=== PATIENT | female | born 1995 | race Caucasian/White ===

== ENCOUNTER 2016-06-14 19:33 | Emergency (ER) | payer SELFPAY ==
[2016-06-14] MEDS ORDERED: IBUPROFEN 800 MG TABLET PO ONE (20:27)
--- NOTE | 2016-06-14 20:27 | ER Document Report ---
ED Medical Screen (RME) - General Stated Complaint: FALL/BACK PAIN Notes: Patient is a 20-year-old female presents emergency Department with 2 days or back pain. Patient states that she is getting out of a car and she slipped and landed on her bottom. She is able to bear weight and ambulate. Denies any urinary system, saddle anesthesia. I have greeted and performed a rapid initial assessment of this patient. A comprehensive ED assessment and evaluation of the patient, analysis of test results and completion of the medical decision making process will be conducted by additional ED providers. TRAVEL OUTSIDE OF THE [place] IN LAST 30 DAYS: No - Related Data Allergies/Adverse Reactions: No Known Allergies Allergy (Verified 11/14/15 12:15) Past Medical History Neurological Medical History: Reports: Hx Migraine Psychiatric Medical History: Reports: Hx Anxiety - Immunizations Hx Diphtheria, Pertussis, Tetanus Vaccination: Yes Physical Exam - Vital signs Vitals: Temp Pulse Resp BP Pulse Ox 97.3 F 67 16 102/51 L 100 06/14/16 20:17 06/14/16 20:17 06/14/16 20:17 06/14/16 20:17 06/14/16 20:17 Course - Vital Signs Vital signs: Temp Pulse Resp BP Pulse Ox 97.3 F 67 16 102/51 L 100 06/14/16 20:17 06/14/16 20:17 06/14/16 20:17 06/14/16 20:17 06/14/16 20:17
[2016-06-14] MEDS ORDERED: HYDROCODONE/ACETAMINOPHEN 5-325 MG 6 TAB/DSPK PO PRN (22:36)
--- NOTE | 2016-06-14 22:39 | ER Document Report ---
HPI - HPI Pain Level: 4 Context: Patient is a 20-year-old female that comes emergency department for chief complaint of 2 days of pain in her tailbone area. Patient states she was getting out of a car and she slipped and fell backwards and landed on the ground directly on her tailbone. She states that she cannot get comfortable but she is able to bear weight and walk without difficulty. She denies any bowel incontinence, urinary retention, focal numbness or weakness. She does state she has pain in her right hamstring area as well. LMP 05/18/2016. - REPRODUCTIVE LMP: 05/18/16 Reproductive: DENIES: : - DERM Skin Color: Normal Past Medical History - General Information source: Patient - Social History Smoking Status: Current Every Day Smoker Chew tobacco use (# tins/day): No Frequency of alcohol use: None Drug Abuse: None Lives with: Family Family History: Reviewed & Not Pertinent Patient has suicidal ideation: No Patient has homicidal ideation: No Neurological Medical History: Reports: Hx Migraine Renal/ Medical History: Denies: Hx Peritoneal Dialysis Psychiatric Medical History: Reports: Hx Anxiety Surgical Hx: Negative - Immunizations Hx Diphtheria, Pertussis, Tetanus Vaccination: Yes Vertical Provider Document - CONSTITUTIONAL General Appearance: WD/WN, No Apparent Distress, Obese - INFECTION CONTROL TRAVEL OUTSIDE OF THE [place] IN LAST 30 DAYS: No - HEENT HEENT: Atraumatic, Normal ENT Exam, Normocephalic - NECK Neck: Normal Inspection - RESPIRATORY Respiratory: Breath Sounds Normal, No Respiratory Distress O2 Sat by Pulse Oximetry: 100 - CARDIOVASCULAR Cardiovascular: Regular Rate, Regular Rhythm - GI/ABDOMEN Gastrointestinal: Abdomen Soft, Abdomen Non-Tender - MUSCULOSKELETAL/EXTREMETIES Musculoskeletal/Extremeties: MAEW, FROM, Non-Tender - NEURO Level of Consciousness: Awake, Alert, Appropriate - DERM Integumentary: Warm, Dry, No Rash Course - Re-evaluation Re-evalutation: Patient actually is tender specifically over the sacrum/coccyx on examination, however there is no bruising or significant swelling to the area, x-rays do not show any fracture, patient ambulates without difficulty, no saddle anesthesia, normal distal neurovascular exam, normal back exam otherwise. Treating with anti-inflammatories, muscle relaxers, discussed results, treatment recommendations, follow-up, return precautions, patient states understanding and agreement. - Vital Signs Vital signs: Temp Pulse Resp BP Pulse Ox 97.3 F 67 16 102/51 L 100 06/14/16 20:17 06/14/16 20:17 06/14/16 20:17 06/14/16 20:17 06/14/16 20:17 Discharge - Discharge Clinical Impression: Sacral back pain Right hamstring muscle strain Qualifiers: Encounter type: initial encounter Qualified Code(s): S76.311A - Strain of muscle, fascia and tendon of the posterior muscle group at thigh level, right thigh, initial encounter Condition: Stable Disposition: HOME, SELF-CARE Additional Instructions: X-rays show no fracture, examination and symptoms are consistent with contusion and soft tissue injury. Apply heat to your hamstring, take the naproxen and Robaxin as directed, rest. Follow-up with primary care. Return to the emergency department for any concerning or worsening symptoms including numbness, inability to urinate, fever, or any other concerning symptoms. Prescriptions: Methocarbamol [Robaxin 750 mg Tablet] 750 mg PO Q6 #20 tablet Naproxen 500 mg PO BID #14 tablet Forms: Return to Work
[2016-06-14 23:00] VITALS: BP 117/63
== END 2016-06-14 22:59 | disposition home or self-care (01) ==
LOC: ER 19:33
DX: S76.311A Strain of muscle, fascia and tendon of the posterior muscle group at thigh level, right thigh, initial encounter (principal); W17.89XA Other fall from one level to another, initial encounter; Y93.89 Activity, other specified; M53.3 Sacrococcygeal disorders, not elsewhere classified; F17.200 Nicotine dependence, unspecified, uncomplicated
CPT/HCPCS: 72220; 99283

== ENCOUNTER 2016-07-06 22:41 | Emergency (ER) | payer SELFPAY ==
[2016-07-07] MEDS ORDERED: CLONAZEPAM 1 MG TABLET PO ONE (01:03)
--- NOTE | 2016-07-07 01:08 | ER Document Report ---
ED General - General Chief Complaint: Anxiety Stated Complaint: TROUBLE BREATHING Notes: Patient is a 21-year-old female presents with complaint of possible panic attack. Patient says she has a history of anxiety and panic attacks in the past. 2 months ago she stopped shoulder prescription for Prozac and Klonopin because she cannot afford them. She says she still sees her doctor and is still prescribe these medications but has been unable to get them filled. She said tonight she woke up and had rapid breathing and felt like her heart was beating fast. She didn't start full numbness and her extremities and she developed carpopedal spasms of both hands. She says since being in the ER the symptoms have resolved and she feels improved. She says she's had the exact same symptoms in the past however this time they were more severe because she has been without her medications. She has no other complaints at this time. TRAVEL OUTSIDE OF THE [place] IN LAST 30 DAYS: No - Related Data Allergies/Adverse Reactions: No Known Allergies Allergy (Verified 07/06/16 23:14) Past Medical History - Social History Smoking Status: Former Smoker Chew tobacco use (# tins/day): No Frequency of alcohol use: None Drug Abuse: Marijuana Family History: Reviewed & Not Pertinent Neurological Medical History: Reports: Hx Migraine Renal/ Medical History: Denies: Hx Peritoneal Dialysis Psychiatric Medical History: Reports: Hx Anxiety - Immunizations Hx Diphtheria, Pertussis, Tetanus Vaccination: Yes Review of Systems - Review of Systems Notes: My Normal Review Basic REVIEW OF SYSTEMS: CONSTITUTIONAL : Denies fever, chills, or sweats. Denies recent illness. CARDIOVASCULAR: Some chest heaviness RESPIRATORY: Rapid breathing MUSCULOSKELETAL: Spasm into the hands SKIN: Denies rash or skin lesions.. NEUROLOGICAL: Denies altered mental status or loss of consciousness. Denies headache. Denies weakness or paralysis or loss of use of either side. Denies problems with gait or speech. Extremity numbness PSYCHIATRIC: Anxiety ALL OTHER SYSTEMS REVIEWED AND NEGATIVE. Physical Exam - Vital signs Vitals: Pulse Resp BP Pulse Ox 116 H 20 120/86 H 100 07/06/16 22:45 07/06/16 22:45 07/06/16 22:45 07/06/16 22:45 - Notes Notes: General Appearance: Well nourished, alert, cooperative, no acute distress, no obvious discomfort. Well-appearing. Vitals: reviewed, See vital signs table. Head: no swelling or tenderness to the head Eyes: PERRL, EOMI, Conjuctiva clear Mouth: No decreasd moisture Neck: Supple, no neck tenderness, No thyromegaly Lungs: No wheezing, No rales, No rhonci, No accessory muscle use, good air exchange bilaterally. Heart: Normal rate, Regular rythm, No murmur, no rub Extremities: strength 5/5 in all extremities, good pulses in all extremities, no swelling or tenderness in the extremities, no edema. Skin: warm, dry, appropriate color, no rash Neuro: speech clear, oriented x 3, normal affect, responds appropriately to questions. Nerves II through XII are intact. Patient moves all extremities without difficulty. Distal sensation intact. Course - Vital Signs Vital signs: Temp Pulse Resp BP Pulse Ox 116 H 20 120/86 H 100 07/06/16 22:45 07/06/16 22:45 07/06/16 22:45 07/06/16 22:45 - Transfer of Care Notes: 07/07/16 01:07 Patient's history and symptoms are very consistent with her history of panic attacks. I will place her back on Klonopin. We'll give her her first dose here. She says she just Ate today and would be able to afford to fill the prescription. On auscultation the heart is no regular rate and rhythm. When she first arrived she was low but tachycardic however this appears to have improved. She's had no fevers. No recent infections. No history of heart disease or arrhythmia. I feel she is safe to be discharged home. I encouraged return to ER shows recurrence of her symptoms or feels unwell. Patient agrees with plan will be discharged home. Dictation of this chart was performed using voice recognition software; therefore, there may be some unintended grammatical errors. Discharge - Discharge Clinical Impression: Panic attack Condition: Good Disposition: HOME, SELF-CARE Instructions: Anxiety ([facility]) Additional Instructions: Please take the Klonopin as prescribed. Please follow-up with your doctor for close reevaluation and for further management of your anxiety and panic attacks. Please return to ER immediately if you have recurrent symptoms, palpitations that will not go away, difficulty breathing, or feel unwell. Prescriptions: Clonazepam [Klonopin] 0.5 mg PO DAILY #20 tablet Forms: Return to Work
[2016-07-07 01:22] VITALS: BP 116/66
== END 2016-07-07 01:32 | disposition home or self-care (01) ==
LOC: ER 22:41
DX: F41.0 Panic disorder [episodic paroxysmal anxiety] (principal); Z91.14 Patient's other noncompliance with medication regimen; Z59.9 Problem related to housing and economic circumstances, unspecified; Z87.891 Personal history of nicotine dependence
CPT/HCPCS: 99283

== ENCOUNTER 2017-01-12 14:10 | Emergency (ER) | payer MEDICAID, OTHER ==
[2017-01-12 14:14] VITALS: BP 139/72
--- NOTE | 2017-01-12 15:49 | ER Document Report ---
ED ENT - General Chief Complaint: Sore Throat Stated Complaint: SORE THROAT Time Seen by Provider: 01/12/17 14:59 Mode of Arrival: Ambulatory Information source: Patient TRAVEL OUTSIDE OF THE [place] IN LAST 30 DAYS: No - HPI Patient complains to provider of: Throat problem Onset: Other - 3 days ago Onset/Duration: Gradual Quality of pain: Achy, Sharp Severity: Moderate Pain Level: 2 Context: denies: Recent Illness Location of pain: Throat Associated symptoms: Difficulty swallowing, Swollen glands. denies: Fever, Runny nose Similar symptoms previously: Yes Recently seen / treated by doctor: No - Related Data Allergies/Adverse Reactions: No Known Allergies Allergy (Verified 01/12/17 14:12) Past Medical History - General Information source: Patient - Social History Smoking Status: Current Every Day Smoker Cigarette use (# per day): Yes - Half-pack Chew tobacco use (# tins/day): No Frequency of alcohol use: None Drug Abuse: None Family History: Reviewed & Not Pertinent - Past Medical History Cardiac Medical History: Reports: None Pulmonary Medical History: Reports: None EENT Medical History: Reports: Throat - History of strep throat patient states at least 3-4 times a year. Neurological Medical History: Reports: Hx Migraine Renal/ Medical History: Denies: Hx Peritoneal Dialysis Psychiatric Medical History: Reports: Hx Anxiety Surgical Hx: Negative - Immunizations Hx Diphtheria, Pertussis, Tetanus Vaccination: No Review of Systems - Review of Systems Constitutional: denies: Fever, Malaise EENT: Throat pain Cardiovascular: No symptoms reported Respiratory: No symptoms reported Gastrointestinal: No symptoms reported Genitourinary: No symptoms reported Female Genitourinary: No symptoms reported Musculoskeletal: No symptoms reported Skin: No symptoms reported Hematologic/Lymphatic: No symptoms reported Neurological/Psychological: No symptoms reported -: Yes All other systems reviewed and negative Physical Exam - Vital signs Vitals: Temp Pulse Resp BP Pulse Ox 98.7 F 110 H 20 139/72 H 98 01/12/17 14:13 01/12/17 14:13 01/12/17 14:13 01/12/17 14:13 01/12/17 14:13 - Notes Notes: Patient is a 21-year-old female comes emergency room complaining of sore throat. She states this started approximately 3 days ago. He also tells me that she has a strong history of strep throat in the past beginning when she was in her early teens on having strep throat at least 3-4 times a year. 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 - General General appearance: Appears well, Alert - HEENT Head: Normocephalic, Atraumatic Mucous membranes: Moist Pharynx: Erythema, Exudate, Other - Examination patient's oral cavity shows bilateral tonsillar enlargement with a exudate noted greater on the right than the left. Uvula is midline with erythema no exudate and there is no encroachment upon uvula by the tonsils at this time. Patient also displays bilateral anterior cervical lymphadenopathy to palpation.. No: Peritonsillar abscess, Post nasal drainage, Retropharyngeal abscess, Uvular edema - Respiratory Respiratory status: No respiratory distress Chest status: Nontender Breath sounds: Normal. No: Rales, Rhonchi, Stridor, Wheezing Chest palpation: Normal - Cardiovascular Rhythm: Tachycardia Heart sounds: Normal auscultation Murmur: No - Neurological Neuro grossly intact: Yes Cognition: Normal Orientation: AAOx4 [place] Coma Scale Eye Opening: Spontaneous Nish Coma Scale Verbal: Oriented Nish Coma Scale Motor: Obeys Commands [place] Coma Scale Total: 15 Speech: Normal - Skin Skin Moisture: Dry Skin Color: Normal, [place] Course - Vital Signs Vital signs: Temp Pulse Resp BP Pulse Ox 98.7 F 110 H 20 139/72 H 98 01/12/17 14:13 01/12/17 14:13 01/12/17 14:13 01/12/17 14:13 01/12/17 14:13 Discharge - Discharge Clinical Impression: Tonsillitis Pharyngitis Qualifiers: Pharyngitis/tonsillitis etiology: unspecified etiology Qualified Code(s): J02.9 - Acute pharyngitis, unspecified Condition: Stable Disposition: HOME, SELF-CARE Instructions: Amoxicillin ([facility]), Corticosteroid Medication ([facility]), Sore Throat ( [facility]) Additional Instructions: Home and rest. Medications prescribed. Warm salt water gargles 3-4 times a day. May also use Chloraseptic spray to help reduce the discomfort. Tylenol alternating with Motrin for aches pains and fever. Return to ER for any concerns or problems. Prescriptions: Amoxicillin 875 mg PO BID #20 tablet Prednisone [Sterapred Ds] 10 mg PO DAILY 6 Days #1 tab.ds.pk Forms: Elevated Blood Pressure
== END 2017-01-12 15:57 | disposition home or self-care (01) ==
LOC: ER 14:10
DX: J03.90 Acute tonsillitis, unspecified (principal); R59.0 Localized enlarged lymph nodes; R13.10 Dysphagia, unspecified; F17.210 Nicotine dependence, cigarettes, uncomplicated
CPT/HCPCS: 99282

== ENCOUNTER 2018-11-20 11:55 | Outpatient (CLI) | payer MEDICAID | END 2018-11-20 12:56 | disposition home or self-care (01) | LOC: LC 11:55 | PROVIDERS: ATTEND Obstetrics & Gynecology Gynecology | PROC: 4A1HXCZ Monitoring of Products of Conception, Cardiac Rate, External Approach (ICD-10-PCS; principal; 2018-11-20) | DX: Z34.93 Encounter for supervision of normal pregnancy, unspecified, third trimester (principal) | CPT/HCPCS: 59025 ==

== ENCOUNTER 2018-12-17 08:57 | Inpatient (IN) | payer MEDICAID ==
[2018-12-17] MEDS ORDERED: MISOPROSTOL 0.2 MG TABLET ONE (09:23)
[2018-12-17] MEDS ORDERED: OXYTOCIN 10 UNIT/ML VIAL ONE (09:23)
[2018-12-17] MEDS ORDERED: PENICILLIN G-K 5 MILLION UNIT VIAL ONE ×3 (09:23→17:13)
[2018-12-17] MEDS ORDERED: LIDOCAINE 1% INJ-PF (10 MG/ML) 30 ML SDV ONE (09:23)
[2018-12-17] MEDS ORDERED: OXYTOCIN/NORMAL SALINE 20 UNIT/1,000 ML RTUINJ ONE (09:23)
[2018-12-17] MEDS: RINGERS SOLUTION,LACTATED 1,000 ML IV PRN ×2 (09:43→12:24)
[2018-12-17] MEDS ORDERED: PENICILLIN G POTASSIUM 5,000,000 UNIT in DEXTROSE 5%-WATER 100 ML IV ONE (09:59)
--- NOTE | 2018-12-17 10:32 | Admission Physical ---
Datetime Report Generated by CPN: 12/17/2018 10:32 CURRENT ADMISSION Hx Assessment: The History has been Reviewed and is Current Chief Complaint: Uterine Contractions Indication for Induction: Not Applicable Admit Impression : , Intrauterine ; Active Labor Admit Plan: Admit to Unit; Initiate Labor Protocol ALLERGIES Medication Allergies: No Medication Allergies: No Known Allergies (12/17/2018) Latex: No Latex Allergies OBSTETRICAL HISTORY EDC: 01/13/2019 00:00 : 5 Para: 4 Term: 4 : 0 SAB: 0 IAB: 0 Ectopic: 0 Livin Cesareans: 0 VBACs: 0 Multiple Births: 0 Gestational Diabetes: Yes Rh Sensitization: No Incompetent Cervix: No BILL: No Infertility: No ART Treatment: No Uterine Anomaly: No IUGR: No Hx Previous C/S: No Macrosomia: No Hx Loss/Stillborn: No PIH: No Hx : No Placenta Previa/Abruption: No Depression/PP Depression: No PTL/PROM: No Post Hemorrhage: No Current Procedures: Ultrasound; NST Obstetrical History Comments: G1: 2013, 42 wks, vaginal 8lb 4 oz, female -GDM G2: 2013, 38.2 wks, vaginal 8lbs 8oz, female G3: 2015, 37 wks, vaginal 7lbs 6 oz, female G4: 2018, 37 wks, vaginal 6lbs 12 oz, female-GDM G5: current. -GDM SEE RECORDS Alcohol: No Marijuana : Yes Marijuana Comments: Not use since first trimester Cocaine: No Other Illicit Drugs: No Cigarettes: Never Smoker. 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 Surgery: No Heart Disease: No Hosp/Surgery: Yes Autoimmune Disorder: No Anesthetic Complications: No Kidney Disease: No Abnormal Pap Smear: No Neuro/Epilepsy: No Psychiatric Disorders: No Other Medical Diseases: No Hepatitis/Liver Disease: No Significant Family History: No Varicosities/Phlebitis: No Trauma/Violence : No Thyroid Dysfunction: No Medical History Comments: depression and anxiety CHILDBIRTH INFECTIOUS HISTORY Gonorrhea: No Genital Herpes: No Chlamydia: No Tuberculosis: No Syphilis: No Hepatitis: No HIV/AIDS Exposure: No Rash or Viral Illness: No HPV: No PHYSICAL EXAM General: Normal Heart: Normal Lungs: Normal Breast: Normal Back: Normal Abdomen: Normal Extremities: Normal Pelvic Type: Adequate Physical Exam Comments: pelvis proven to 8lbs 8 oz Vital Signs: Reviewed VAGINAL EXAM Dilatation: 4-5 Effacement: 70 Station: -1 Contraction Comments: 3-5 FETUS A EGA: 36.1 Monitoring: External US Variability: Moderate 6-25bpm FHR Category: Category I Estimated Weight (gm): 3400 Presentation: Vertex Admit Comment: 23yo at 36w1d into L_D with contractions and found to have cervical change after an hour. Pt is A pos, rubella immune, GBS unknown with medical hx of anxiety, dipolar disorder, depression, obesity and chronic migraines. Also significant hx for GDM x2 and on metformin this as well as a 2vc. also complicated by trichomonas infection in early . Plan is to admit and anticipate delivery. FETUS B Monitoring: External US PLANS FOR LABOR AND DELIVERY Labor and Delivery: None Pain Management: Natural Feeding Preference: Breast Benefit of Breast Feed Discussed: Yes Circumcision: Yes INFORMED CONSENT Assignment: Onur Dc MD Signature: with User ID: [email or web address] : with User ID: [email or web address]
[2018-12-17 10:33] LABS: URINE AMPHETAMINES SCREEN NEGATIVE; URINE BARBITURATES SCREEN NEGATIVE; URINE BENZODIAZEPINES SCREEN NEGATIVE; URINE COCAINE SCREEN NEGATIVE; URINE MARIJUANA (THC) SCREEN NEGATIVE; URINE METHADONE SCREEN NEGATIVE; URINE PHENCYCLIDINE SCREEN NEGATIVE
[2018-12-17 11:26] LABS: ABSOLUTE EOSINOPHILS # (AUTO) 0.1 10^3/uL (0.0-0.6); ABSOLUTE LYMPHOCYTES (AUTO) 1.3 10^3/uL (0.5-4.7); ABSOLUTE MONOCYTES (AUTO) 0.4 10^3/uL (0.1-1.4); ABSOLUTE NEUT (AUTO) 7.1 10^3/uL (1.7-8.2); BASOPHILS % (AUTO) 0.2 % (0-2); EOSINOPHILS % (AUTO) 1.3 % (0-6); HEMATOCRIT 36.4 % (36.0-47.0); HEMOGLOBIN 12.8 g/dL (12.0-15.5); LYMPHOCYTES % (AUTO) 14.5 % (13-45); MEAN CORPUSCULAR HEMOGLOBIN 33.9 pg (27.0-33.4); MEAN CORPUSCULAR HGB CONC 35.1 g/dL (32.0-36.0); MEAN CORPUSCULAR VOLUME 97 fl (80-97); MONOCYTES % (AUTO) 4.2 % (3-13); PLATELET COUNT 152 10^3/uL (150-450); RED BLOOD COUNT 3.77 10^6/uL (3.72-5.28); SEGMENTED NEUTROPHILS % (AUTO) 79.8 % (42-78); TOTAL CELLS COUNTED % (AUTO) 100 %; WHITE BLOOD COUNT 8.9 10^3/uL (4.0-10.5)
[2018-12-17] MEDS ORDERED: EPHEDRINE SULFATE INJ 50 MG/1 ML AMPULE ONE (12:28)
[2018-12-17] MEDS ORDERED: BUPIVACAINE HCL 0.25 % INJ/PF (2.5 MG/1 ML) 30 ML VIAL ONE (12:29)
[2018-12-17] MEDS ORDERED: FENTANYL/BUPIVACAINE/NS/PF 300 MCG/150 ML RTUINJ EPI ONE (12:29)
[2018-12-17 13:03] LABS: CHLAM PCR NOT DETECTED (NOT DETECT)
[2018-12-17] MEDS: PENICILLIN G POTASSIUM 2,500,000 UNIT in DEXTROSE 5%-WATER 50 ML IV SCH ×2 (13:40→17:22)
[2018-12-17] MEDS ORDERED: ACETAMINOPHEN 325 MG TABLET PO PRN (20:21)
[2018-12-17] MEDS ORDERED: OXYTOCIN/NORMAL SALINE 20 UNIT/1,000 ML RTUINJ IV PRN (20:21)
[2018-12-17] MEDS ORDERED: DIPHENHYDRAMINE HCL 25 MG CAPSULE PO PRN (20:21)
[2018-12-17] MEDS ORDERED: ZOLPIDEM TARTRATE 5 MG TABLET PO PRN (20:21)
[2018-12-17] MEDS ORDERED: ACETAMINOPHEN WITH CODEINE #3 TABLET PO PRN ×2 (20:21)
[2018-12-17] MEDS ORDERED: PROMETHAZINE HCL 25 MG SUPP.RECT PR PRN (20:21)
[2018-12-17] MEDS ORDERED: MISOPROSTOL 0.2 MG TABLET PR PRN (20:21)
[2018-12-17] MEDS ORDERED: DIPH/PERTUSS(ACELL)/TETANUS VAC/PF 0.5 ML SYR (>=10YO) IM PRN (20:21)
[2018-12-17] MEDS ORDERED: BENZOCAINE/MENTHOL AEROSOL SPRAY 56 ML TOP PRN (20:21)
[2018-12-17] MEDS ORDERED: DIBUCAINE 1% OINTMENT 56 GM TP PRN (20:21)
[2018-12-17] MEDS ORDERED: PROMETHAZINE HCL 25 MG TABLET PO PRN (20:21)
[2018-12-17] MEDS ORDERED: GLYCERIN/WITCH HAZEL LEAF 1 EACH MED..WIPE TP PRN (20:21)
[2018-12-17] MEDS ORDERED: PSEUDOEPHEDRINE HCL 30 MG TABLET PO PRN (20:21)
[2018-12-17] MEDS ORDERED: MAGNESIUM HYDROXIDE SUSP 30 ML UDCUP PO PRN (20:21)
[2018-12-17] MEDS ORDERED: NA PHOS,M-B/NA PHOS,DI-BA (ADULT) 133 ML ENEMA PR PRN (20:21)
[2018-12-17] MEDS ORDERED: MEASLES,MUMPS&RUBELLA VACC/PF 0.5 ML VIAL SUBCUT PRN (20:21)
[2018-12-17] MEDS ORDERED: PROMETHAZINE HCL INJ 25 MG/1 ML VIAL IV PRN (20:21)
[2018-12-17] MEDS ORDERED: DIPHENHYDRAMINE HCL 25 MG CAPSULE ONE (20:45)
[2018-12-17] MEDS ORDERED: FAMOTIDINE 20 MG TABLET ONE (21:16)
[2018-12-17] MEDS ORDERED: IBUPROFEN 800 MG TABLET ONE (21:16)
[2018-12-17] MEDS: IBUPROFEN 800 MG TABLET PO SCH (22:02)
[2018-12-17] MEDS: FAMOTIDINE 20 MG TABLET PO SCH (22:02)
[2018-12-18] MEDS ORDERED: IBUPROFEN 800 MG TABLET ONE (05:03)
[2018-12-18] MEDS: IBUPROFEN 800 MG TABLET PO SCH ×3 (05:05→21:48)
[2018-12-18 07:54] LABS: HEMATOCRIT 32.1 % (36.0-47.0); HEMOGLOBIN 11.2 g/dL (12.0-15.5); MEAN CORPUSCULAR HEMOGLOBIN 33.5 pg (27.0-33.4); MEAN CORPUSCULAR HGB CONC 34.9 g/dL (32.0-36.0); MEAN CORPUSCULAR VOLUME 96 fl (80-97); PLATELET COUNT 151 10^3/uL (150-450); RED BLOOD COUNT 3.34 10^6/uL (3.72-5.28); RED CELL DISTRIBUTION WIDTH 13.9 % (11.5-14.0); WHITE BLOOD COUNT 7.4 10^3/uL (4.0-10.5)
[2018-12-18] MEDS ORDERED: PRENATAL VITAMIN W DHA CAPSULE PO ONE (09:51)
[2018-12-18] MEDS ORDERED: SENNOSIDES/DOCUSATE 8.6-50 MG 1 EACH TABLET ONE (09:51)
[2018-12-18] MEDS ORDERED: FAMOTIDINE 20 MG TABLET ONE (09:52)
[2018-12-18] MEDS ORDERED: FERROUS SULFATE 325 MG TABLET PO ONE (09:52)
[2018-12-18] MEDS ORDERED: DOCUSATE SODIUM 100 MG CAPSULE ONE (09:52)
[2018-12-18] MEDS: PRENATAL VITAMIN W DHA CAPSULE PO SCH (09:54)
[2018-12-18] MEDS: FERROUS SULFATE 325 MG TABLET PO SCH ×2 (09:54→18:32)
[2018-12-18] MEDS: FAMOTIDINE 20 MG TABLET PO SCH ×2 (09:54→21:48)
[2018-12-18] MEDS: DOCUSATE SODIUM 100 MG CAPSULE PO SCH ×2 (10:05→18:43)
[2018-12-18] MEDS: SENNOSIDES/DOCUSATE 8.6-50 MG 1 EACH TABLET PO SCH (10:05)
[2018-12-19] MEDS: IBUPROFEN 800 MG TABLET PO SCH ×2 (06:11→16:07)
[2018-12-19 07:20] VITALS: BP 103/56
[2018-12-19] MEDS: SENNOSIDES/DOCUSATE 8.6-50 MG 1 EACH TABLET PO SCH (10:54)
[2018-12-19] MEDS: FAMOTIDINE 20 MG TABLET PO SCH (10:54)
[2018-12-19] MEDS: PRENATAL VITAMIN W DHA CAPSULE PO SCH (10:54)
[2018-12-19] MEDS: FERROUS SULFATE 325 MG TABLET PO SCH (10:54)
[2018-12-19] MEDS: DOCUSATE SODIUM 100 MG CAPSULE PO SCH (10:57)
--- NOTE | 2018-12-19 13:25 | PDOC DISCHARGE SUMMARY ---
Final Diagnosis Discharge Date: 12/19/18 - Final Diagnosis (1) labor Is this a current diagnosis for this admission?: Yes (2) Vaginal delivery Is this a current diagnosis for this admission?: Yes Discharge Data - Discharge Medication Prescriptions: Ibuprofen [Motrin 800 mg Tablet] 800 mg PO Q8HP PRN #60 tablet PRN Reason: Home Medications: Prenat 115/Iron Fum/Folic/Dss [ 19 Tablet] 1 tab PO DAILY 01/12/14 Aripiprazole [Abilify 15 mg Tablet] 15 mg PO DAILY 12/04/18 Ibuprofen [Motrin 800 mg Tablet] 800 mg PO Q8HP PRN #60 tablet 12/19/18 Reason(s) for Admission: Onset of Labor Procedures: NST Intrapartum Procedure(s): Spontaneous Vaginal Delivery - Diagnosis Test Laboratory: Temp Pulse Resp BP Pulse Ox 97.4 F 68 14 103/56 L 100 12/19/18 07:17 12/19/18 07:17 12/19/18 07:12/19/18 07:12/19/18 07:12/17/18 12/17/18 12/18/18 09: 11:05 07:20 RBC 3.77 3.34 L Hgb 12.8 11.2 L Hct 36.4 32.1 L Urine Opiates Screen NEGATIVE - Discharge information/Instructions Discharge Activity: Balance Activity w/Rest, Pelvic Rest Discharge Diet: Regular Disposition: HOME, SELF-CARE Follow up with: [facility] in: 4, Weeks
--- NOTE | 2018-12-23 14:49 | Delivery Summary ---
Del Sum A-C Datetime Report Generated by CPN: 12/23/2018 14:49 DELIVERY PERSONNEL DELIVERY PERSONNEL: [id number] Delivery Doctor:: Amy Moses MD Anesthesiologist:: Jordon Aldridge MD Labor and Delivery Nurse:: Katty Murillo RNstock buyer Nurse:: Pia Reyes RN Nursery Nurse:: Idalia Dunn RN Sign Writer Letterer Or Painter/BIAS BINDING FOLDER: Brianna Arthur CST Sign Writer Letterer Or Painter/BIAS BINDING FOLDER: Anastasiya Betancourt CNA II MATERNAL INFORMATION Delivery Anesthesia: Epidural Medications After Delivery: Pitocin Bolus-Please Comment; Pitocin Drip 20 Units/1000ml NSS; Cytotec 1000mcg Per Rectum/Vagina Estimated Blood Loss (ml): 50 Delivery QBL: 50 Delivery QBL Comment: 50ml Maternal Complications: None Maternal Complications: None Provider Comments: VMI delivered in TG presentation. No nuchal cord. Shoulders and body delivered without difficulty. Cord doubly clamped and cut. Infant to maternal abdomen for NRP. Placenta delivered intact spontaneously. FF at U. No perineal lacerations. Good hemostasis. cytotec 1000mcg given per rectum for uterine tone due to now . Mother and baby stable upon provider leaving the room LABOR SUMMARY EDC: 01/13/2019 00:00 No. Babies in Womb: 1 Attempted: No Labor Anesthesia: Epidural LABOR INFORMATION Reason for Induction: Not Applicable Onset of Labor: 12/16/2018 02:30 Complete Dilatation: 12/17/2018 18:38 (Annotations: Data stored by CPN on behalf of user) Complete Dilatation: 12/17/2018 18:35 Other Ripening Agents: NA Oxytocin: N/A Group B Beta Strep: Unknown Antibiotics # of Doses: 3 Antibiotics Time of Last Dose: 1730 Name of Antibiotic Given: PCN Steroids Given: None Reason Steroids Not Administered: Not Applicable MEMBRANES Membranes Rupture Method: Artificial Rupture of Membranes: 12/17/2018 15:04 Length of Rupture (hr): 3.73 Amniotic Fluid Color: Clear Amniotic Fluid Amount: Small STAGES OF LABOR Stage 1 hr: 40 Stage 1 min: 8 Stage 2 hr: 0 Stage 2 min: 10 Stage 3 hr: 0 Stage 3 min: 2 Total Time in Labor hr: 40 Total Time in Labor min: 20 VAGINAL DELIVERY Episiotomy: None Laceration #1: None Laceration Extension #1: N/A Laceration Repair: Not Applicable Sponge Count Correct: N/A Sharps Count Correct: N/A CSECTION DELIVERY Primary Indication: N/A Secondary Indication: N/A CSection Incidence: N/A Labor: N/A Elective: N/A CSection Incision: N/A BABY A INFORMATION Infant Delivery Date/Time: 12/17/2018 18:48 Method of Delivery: Vaginal Born in Route : No : N/A Forceps: N/A Vacuum Extraction: N/A Shoulder Dystocia : No PRESENTATION/POSITION BABY A Presentation: Cephalic Cephalic Presentation: Vertex Vertex Position: Right Occipital Anterior Breech Presentation: N/A PLACENTA INFORMATION BABY A Placenta Delivery Time : 12/17/2018 18:50 Placenta Method of Delivery: Spontaneous Placenta Status: Delivered SCORES BABY A Heart Rate 1 min: >100 bpm Resp Effort 1 min: Good Cry Reflex Irritability 1 min: Cough or Sneeze or Pulls Away Muscle Tone 1 min: Active Motion Color 1 min: Blue/Pale Resuscitation Effort 1 min: Tactile Stimulation SCORE 1 MIN: 8 Heart Rate 5 min: >100 bpm Resp Effort 5 min: Good Cry Reflex Irritability 5 min: Cough or Sneeze or Pulls Away Muscle Tone 5 min: Active Motion Color 5 min: Body [place], Extremities Blue Resuscitation Effort 5 min: Tactile Stimulation SCORE 5 MIN: 9 INFORMATION BABY A Gestational Age at Delivery: 36.1 Gestational Status: Late - 34- 36.6 Weeks Outcome : Liveborn Infant Condition : Stable Sex: Male IDENTIFICATION BABY A Verification Date/Time: 12/17/2018 19:07 ID Band Number: [id number] Mother's Name Verified: Yes RN Verifying Infant: , RN and B.Dunn, RN WEIGHT/LENGTH BABY A Infant Birthweight (gm): 3165 Infant Weight (lb): 7 Infant Weight (oz): 0 Infant Length (in): 19.25 Length (cm): 48.90 CORD INFORMATION BABY A No. Cord Vessels: 2 Nuchal Cord : N/A Cord Blood Taken: Yes-For Storage (Mom's Blood type +) Suction: None ASSESSMENT BABY A Infant Complications: Multiple Variable Decels Physical Findings at Delivery: Within Normal Limits Respirations: Grunting; Intercostal Retractions Skin to Skin: Yes Cream Ripener/ALS Called : No Infant Care By: Cynthia, RN BABY B INFORMATION : N/A SIGNATURES Signature: with User ID: [email or web address]
== END 2018-12-19 17:55 | disposition home or self-care (01) | DRG 805 ==
LOC: LC 08:57 → LR 10:11 → 2S 12-18 11:20
PROVIDERS: ADMIT Student in an Organized Health Care Education/Training Program; ATTEND Student in an Organized Health Care Education/Training Program
PROC: 10E0XZZ Delivery of Products of Conception, External Approach (ICD-10-PCS; principal; 2018-12-17)
PROC: 10907ZC Drainage of Amniotic Fluid, Therapeutic from Products of Conception, Via Natural or Artificial Opening (ICD-10-PCS; 2018-12-17)
DX: O24.425 Gestational diabetes mellitus in childbirth, controlled by oral hypoglycemic drugs (principal); O60.14X0 Preterm labor third trimester with preterm delivery third trimester, not applicable or unspecified; Z37.0 Single live birth; Z3A.36 36 weeks gestation of pregnancy
CPT/HCPCS: 36415; 80307; 85025; 85027; 86592; 86701; 86850; 86900; 86901; 87491; 87591; 88307; J2540; J2590; J3010; J3490

== ENCOUNTER 2019-03-30 07:59 | Day surgery (SDC) | payer MEDICAID ==
[2019-03-27 09:47] LABS: HEMATOCRIT 40.8 % (36.0-47.0); MEAN CORPUSCULAR HEMOGLOBIN 30.7 pg (27.0-33.4); MEAN CORPUSCULAR HGB CONC 34.3 g/dL (32.0-36.0); MEAN CORPUSCULAR VOLUME 90 fl (80-97); PLATELET COUNT 233 10^3/uL (150-450); RED BLOOD COUNT 4.55 10^6/uL (3.72-5.28); RED CELL DISTRIBUTION WIDTH 13.7 % (11.5-14.0)
[2019-03-27 09:47] LABS: APPEARANCE,URINE SLIGHTLY-CLOUDY; BILIRUBIN,URINE NEGATIVE (NEGATIVE); COLOR,URINE YELLOW; GLUCOSE, URINE NEGATIVE (NEGATIVE); KETONES,URINE NEGATIVE (NEGATIVE); LEUKOCYTE ESTERASE,URINE LARGE (NEGATIVE); NITRITE,URINE NEGATIVE (NEGATIVE); PROTEIN,URINE NEGATIVE (NEGATIVE); URINE SPECIFIC GRAVITY 1.024; UROBILINOGEN,URINE NEGATIVE mg/dL (<2.0)
[~2019-03-30 07:59] MED LIST: LACTATED RINGERS 1000 ML IV PRN
[2019-03-30] MEDS ORDERED: LIDOCAINE 1%/EPINEPHRINE INJ 20 ML VIAL ONE (10:28)
[2019-03-30] MEDS ORDERED: OXYCODONE-ACETAMINOPHEN 5-325 MG TABLET PO PRN ×2 (10:58)
[2019-03-30] MEDS ORDERED: FENTANYL CITRATE INJ/PF 100 MCG/2 ML AMPUL IV PRN ×2 (10:58)
[2019-03-30] MEDS ORDERED: PROMETHAZINE HCL INJ 25 MG/1 ML VIAL IV PRN ×2 (10:58)
[2019-03-30] MEDS ORDERED: DIPHENHYDRAMINE HCL 50 MG/ML VIAL IV PRN (10:58)
[2019-03-30] MEDS ORDERED: MEPERIDINE HCL/PF INJ 25 MG/1 ML DISP.SYRIN IV PRN (10:58)
--- NOTE | 2019-03-30 11:02 | RADIOLOGY REPORT (SQ) ---
EXAM DESCRIPTION: VENOUS BILATERAL LOWER COMPLETED DATE/TIME: 03/30/2019 10:22 am REASON FOR STUDY: BILATERAL LOWER EXTREMITY PITTING EDEMA Z30.2 ENCOUNTER FOR STERILIZATION COMPARISON: None. TECHNIQUE: Dynamic and static hutchison scale and color images acquired of both lower extremity venous sy stems. Selected spectral images acquired with additional compression and augmentation maneuvers. Imag es stored on PACS. LIMITATIONS: None. FINDINGS: RIGHT LEG COMMON FEMORAL AND FEMORAL: Normal phasicity, compression and augmentation. No visualized echogenic m aterial on hutchison scale. No defects on color images. POPLITEAL: Normal compression and augmentation. No visualized echogenic material on hutchison scale. No de fects on color images. CALF VESSELS: Normal compression and augmentation. No visualized echogenic material on hutchison scale. No defects on color image. GSV AND SSV: Normal compression. No visualized echogenic material on hutchison scale. No defects on color images. ANY DEEP VENOUS INSUFFICIENCY: Not evaluated. ANY EVIDENCE OF POPLITEAL CYST: No. OTHER: No other significant finding. LEFT LEG COMMON FEMORAL AND FEMORAL: Normal phasicity, compression and augmentation. No visualized echogenic m aterial on hutchison scale. No defects on color images. POPLITEAL: Normal compression and augmentation. No visualized echogenic material on hutchison scale. No de fects on color images. CALF VESSELS: Normal compression and augmentation. No visualized echogenic material on hutchison scale. No defects on color images. GSV AND SSV: Normal compression. No visualized echogenic material on hutchison scale. No defects on color images. ANY DEEP VENOUS INSUFFICIENCY: Not evaluated. ANY EVIDENCE POPLITEAL CYST: No. OTHER: No other significant finding. IMPRESSION: NO EVIDENCE DVT OR SVT IN EITHER LEG. TECHNICAL DOCUMENTATION: JOB ID: [id number] [employer]- All Rights Reserved Reading location - IP/workstation name: [email or web address]
[2019-03-30] MEDS ORDERED: SUGAMMADEX SODIUM 200 MG/2 ML SDV IV ONE (11:36)
--- NOTE | 2019-03-30 12:00 | Operative Report ---
Operative Report DATE OF SURGERY: 03/30/19 PREOPERATIVE DIAGNOSIS: Multigravida, 5 living children. Undesired fertility. Obesity POSTOPERATIVE DIAGNOSIS: Same as above OPERATION: Laparoscopic bilateral tubal ligation SURGEON: MARIANNA FREDERICK ANESTHESIA: GA TISSUE REMOVED OR ALTERED: None COMPLICATIONS: None ESTIMATED BLOOD LOSS: 5 INTRAOPERATIVE FINDINGS: Normal appearing uterus, bilateral fallopian tubes and ovaries PROCEDURE: IV fluids: per anesthesia record Urinary output: 100 cc Findings: Normal-appearing uterus bilateral fallopian tubes and ovaries. Appendix seen and appears normal Position: To recovery room in stable condition Description of procedure: The patient was taken to the operating room and general anesthesia was administered and found to be adequate. She was then placed on the OR table in the dorsal lithotomy position. The Patient was prepped and draped in usual sterile fashion. SCDs in place. Timeout was taken. A bivalve speculum to visualize the cervix. The anterior lip of the cervix was then grasped with a single tooth tenaculum and a POLYBONA uterine manipulator was placed. At this time attention was turned of the patient's abdomen and sterile gloves were donned a 1 cm infra umbilical incision was made vertically and carried down to the level of the rectus fascia. The rectus fascia was then grasped with 2 Jhoan clamps elevated and incised with Son scissors. A digital sweep was done noting entry into the peritoneum. The fascia was tagged bilaterally with 0- vicryl suture. A #10 Sosa trocar was positioned and CO2 gas was used to insufflate the abdomen to a quantity sufficient for the laparoscopy. The laparoscope was inserted and a survey was done of the abdomen pictures were obtained. Findings noted normal anatomy. The right fallopian tube was identified and traced to its fimbriated end. The right ovary was noted to be normal. A Filshie clip was then placed approximately 1 to 2 cm from the uterine cornu across the right fallopian tube. The Filshie clip was noted to NOT surround the tube in its entirety but and because of this a second filshie clip was placed approximately 1 cm distal to the aforementioned. The second clip on the right was noted to surround the tube entirely and good blanching was noted. Hemostasic. The left fallopian tube was then traced to its fibriated end and a Filshie clip was placed 1 to 2 cm from the uterine cornu on the left fallopian tube. The Filshie clip was noted to surround the tube in its entirety with good blanching and hemostasis was noted. Pictures were obtained. At this point the procedure was terminated. All instrument removed from the patient's abdomen and CO2 gas was allowed to escape. The infraumbilical port was removed. The fascia was closed with 0 Vicryl suture. The skin was closed with 3-0 Monocryl in a series of interrupted stitiches. The skin incision was then clean dried and Dermabond was applied over the skin incision. All instrument sponge and needle counts were correct x3 for the procedure the patient tolerated the procedure well. She will proceed to recovery room in stable condition
[2019-03-30] MEDS: FENTANYL CITRATE INJ/PF 100 MCG/2 ML AMPUL IV PRN ×2 (12:05→12:15)
[2019-03-30] MEDS ORDERED: FENTANYL CITRATE INJ/PF 100 MCG/2 ML AMPUL ONE (12:06)
[2019-03-30] MEDS ORDERED: PROMETHAZINE HCL INJ 25 MG/1 ML VIAL ONE (12:47)
[2019-03-30] MEDS ORDERED: ACETAMINOPHEN 1,000 MG/100 ML RTUPB IV ONE (12:47)
[2019-03-30] MEDS ORDERED: OXYCODONE-ACETAMINOPHEN 5-325 MG TABLET ONE (13:56)
[2019-03-30] MEDS ORDERED: ONDANSETRON HCL INJ/PF 4 MG/2 ML SDV ONE (14:30)
[2019-03-30] MEDS ORDERED: DEXAMETHASONE SOD PHOSPHATE INJ 4 MG/1 ML VIAL ONE (14:30)
[2019-03-30] MEDS ORDERED: LIDOCAINE 2% INJ-PF (20 MG/ML) 2 ML AMPUL ONE (14:30)
[2019-03-30] MEDS ORDERED: SUCCINYLCHOLINE CHLORIDE INJ 200 MG/10 ML VIAL ONE (14:30)
[2019-03-30] MEDS ORDERED: KETOROLAC TROMETHAMINE 60 MG/2 ML SDV ONE (14:30)
[2019-03-30 15:43] VITALS: BP 130/82
--- NOTE | 2019-04-03 09:24 | PDOC DISCHARGE SUMMARY ---
Impression - Admit/DC Date/PCP Admission Date/Primary Care Provider: 03/30/19 Discharge Date: 03/30/19 - Assessment Summary: Admitted for same day surgery: Bilateral tubal ligation. No complications. Stable post op. F/u in 2 wks at office for post-op visit - Additional Information Resuscitation Status: Full Code Discharge Diet: As Tolerated Discharge Activity: Activity As Tolerated, Pelvic Rest Referrals: MARIANNA FREDERICK MD [ACTIVE PROVISIONAL STAFF] - (Follow up as previously scheduled) Prescriptions: Ibuprofen [Ibu] 800 mg PO Q8 30 Days #30 tablet Ibuprofen [Ibu] 800 mg PO Q8 #30 tablet Oxycodone HCl/Acetaminophen [Percocet 5-325 mg Tablet] 1 tab PO Q4HP PRN #20 tab PRN Reason: Home Medications: Ibuprofen [Ibu] 800 mg PO Q8 #30 tablet 03/30/19 Ibuprofen [Ibu] 800 mg PO Q8 30 Days #30 tablet 03/30/19 Oxycodone HCl/Acetaminophen [Percocet 5-325 mg Tablet] 1 tab PO Q4HP PRN #20 tab 03/30/19 History of Present Illiness History of Present Illness: IBETH LEDEZMA is a 23 year old female Physical Exam - Physical Exam Vital Signs: Temp Pulse Resp BP Pulse Ox 97.5 F 70 18 130/82 H 100 03/30/19 15:15 03/30/19 15:15 03/30/19 15:15 03/30/19 15:15 03/30/19 15:15 Results Laboratory Results: WBC 5.0 10^3/uL (4.0-10.5) 03/27/19 09:15 RBC 4.55 10^6/uL (3.72-5.28) 03/27/19 09:15 Hgb 14.0 g/dL (12.0-15.5) 03/27/19 09:15 Hct 40.8 % (36.0-47.0) 03/27/19 09:15 MCV 90 fl (80-97) 03/27/19 09:15 MCH 30.7 pg (27.0-33.4) 03/27/19 09:15 MCHC 34.3 g/dL (32.0-36.0) 03/27/19 09:15 RDW 13.7 % (11.5-14.0) 03/27/19 09:15 Plt Count 233 10^3/uL (150-450) 03/27/19 09:15 Urine Color YELLOW 03/27/19 09:10 Urine Appearance SLIGHTLY-CLOUDY 03/27/19 09:10 Urine pH 6.0 (5.0-9.0) 03/27/19 09:10 Ur Specific [place] 1.024 03/27/19 09:10 Urine Protein NEGATIVE mg/dL (NEGATIVE) 03/27/19 09:10 Urine Glucose (UA) NEGATIVE mg/dL (NEGATIVE) 03/27/19 09:10 Urine Ketones NEGATIVE mg/dL (NEGATIVE) 03/27/19 09:10 Urine Blood NEGATIVE (NEGATIVE) 03/27/19 09:10 Urine Nitrite NEGATIVE (NEGATIVE) 03/27/19 09:10 Urine Bilirubin NEGATIVE (NEGATIVE) 03/27/19 09:10 Urine Urobilinogen NEGATIVE mg/dL (<2.0) 03/27/19 09:10 Ur Leukocyte Esterase LARGE (NEGATIVE) H 03/27/19 09:10 Urine Ascorbic Acid NEGATIVE (NEGATIVE) 03/27/19 09:10 Urine HCG, Qual NEGATIVE (NEGATIVE) 03/30/19 08:05 Impressions: Venous Doppler Study 03/30/19 09:06 IMPRESSION: NO EVIDENCE DVT OR SVT IN EITHER LEG. Stroke Is this a Stroke Patient?: No Acute Heart Failure - Is this a Heart Failure Patient?: No
== END 2019-03-30 15:20 | disposition home or self-care (01) ==
LOC: OROUT 07:59
PROVIDERS: ATTEND Obstetrics & Gynecology
DX: Z30.2 Encounter for sterilization (principal); Z87.891 Personal history of nicotine dependence; Z79.899 Other long term (current) drug therapy; E66.9 Obesity, unspecified; Z68.42 Body mass index [BMI] 45.0-49.9, adult
CPT/HCPCS: 36415; 85027; 81005; 81025; 93970; 00851; 58671; J1100; J1885; J3010; J3490 ×3; J2550; J0330; J2405; J0131; 851